=== PATIENT | female | born 1975 | race Caucasian/White ===

== ENCOUNTER → 2024-06-14 | Outpatient (REF) | payer OTHER | LOC: MERGE 15:15 → MAMMO 15:15 | PROVIDERS: ATTEND Obstetrics & Gynecology | DX: Z12.31 Encounter for screening mammogram for malignant neoplasm of breast (principal) | CPT/HCPCS: 77067 ==

== ENCOUNTER → 2025-06-21 | Outpatient (REF) | payer BC | LOC: MAMMO 14:56 | PROVIDERS: ATTEND Internal Medicine | DX: Z12.31 Encounter for screening mammogram for malignant neoplasm of breast (principal) | CPT/HCPCS: 77067 ==